=== PATIENT | female | born 1975 | race Caucasian/White ===

== ENCOUNTER → 2017-04-18 | Outpatient (CLI) | payer MEDICAID ==
[~2017-04-18] MED LIST: ATIVAN GENERIC0.5 MG PO; CELEXA10 MG PO; ESTRADIOL1 MG OR; FLEXERIL10 MG PO; GABAPENTIN 600600 MG PO; IBUPROFEN800 MG PO; LISINOPRIL10 MG PO; NORCO 325 MG-101 TAB PO; VENLAFAXINE HC100 MG PO; VICODIN 5/500 T1 TAB PO; VOLTAREN75 MG PO; ZUBSOLV1 TA1 SL
[2017-04-18 19:16] LABS: HEMOGLOBIN 13.8 g/dL (12.2-16.2); LYMPH # 3.6 K/mm3 (0.7-4.5); LYMPH % 42.8 % (10-50.0)
[2017-04-18 21:21] LABS: BUN 13 mg/dL (7-18)
[2017-04-18 21:23] LABS: GFR (ESTIMATED) 111 ML/MIN (59-)
== END ==
LOC: LAB 18:04
PROVIDERS: Emergency Medicine
DX: R53.83 Other fatigue (principal); Z79.899 Other long term (current) drug therapy

== ENCOUNTER → 2017-08-03 | Outpatient (CLI) | payer MEDICAID ==
[2017-08-03 16:35] LABS: AMPHETAMINES/METAMPHETAMINES NEGATIVE ng/mL (<1000)
== END ==
LOC: LAB 14:23
PROVIDERS: Nurse Practitioner Family
DX: R53.83 Other fatigue (principal)